=== PATIENT | male | born 1960 | race Caucasian/White ===

== ENCOUNTER 2023-06-04 14:37 | Emergency (ER) | payer OTHER, SELFPAY ==
[2023-06-04 14:39] VITALS: BP 190/120
[2023-06-04 16:03] LABS: % Basophils 0.1 % (0-2); % Eosinophils 3.2 % (0-6); % Immature Granulocytes 0.4 % (0-0.5); % Lymphocytes 22.3 % (20.5-51.1); Absolute Eosinophils 0.3 10^3/uL (0-0.7); Absolute Lymphocytes 1.9 10^3/uL (1.2-3.4); Absolute Monocytes 0.9 10^3/uL (0.1-0.6); Absolute Neutrophils 5.3 10^3/uL (1.4-6.5); Hematocrit 43.8 % (39.0-52.0); Hemoglobin 15.1 g/dL (13.0-18.0); Mean Corp Hgb Conc. 34.5 g/dL (33.0-37.0); Mean Corpuscular Hgb 27.7 pg (27.0-31.0); Mean Corpuscular Volume 80.2 fL (80.0-94.0); Mean Platelet Volume 9.4 fL (7.4-10.4); Nucleated Red Blood Cells % 0 % (-); Platelet Count 237 10^3/uL (130-400); Red Blood Cell Count 5.46 10^6/uL (4.70-6.10); Red Cell Dist. Width 13.5 % (11.5-14.5); White Blood Cell Count 8.4 10^3/uL (4.8-10.8)
[2023-06-04 16:15] LABS: ALT (SGPT) 45 U/L (0-50); AST (SGOT) 48 U/L (17-59); Albumin 4.2 g/dl (3.5-5.0); Alkaline Phosphatase 134 U/L (38-126); Blood Urea Nitrogen 15 mg/dl (9-20); Calcium 9.7 mg/dl (8.4-10.2); Carbon Dioxide 29 mmol/L (22-30); Chloride 101 mmol/L (98-107); Glucose 102 mg/dl (70-99); Potassium 4.4 mmol/L (3.5-5.1); Sodium 137 mmol/L (135-145); Total Bilirubin 2.4 mg/dl (0.2-1.3); Total Protein 7.7 g/dl (6.3-8.2); eGFR > 60.00
[2023-06-04 16:26] LABS: Troponin I < 0.012 ng/ml
[2023-06-04 17:42] VITALS: BP 184/114
--- NOTE | 2023-06-04 18:27 | ED.GENMED ---
History of Present Illness
<Kami Tadeo PA-C - Last Filed: 06/05/23 00:17>
General
Chief Complaint: Throat Problem
Source: patient
Exam Limitations: none
Time Seen by Provider: 06/04/23 17:49
Nursing documentation reviewed up to this point in time: agreed with
Travel History
Have you had any contact with someone who has COVID-19?: No
Do you have any symptoms of coronavirus? Fever > 100 degrees, chills, cough, shortness of breath, sore throat, loss of taste or smell, muscle aches, or headache?: No
History of Present Illness
History of Present Illness:
Patient is a 62-year-old male with no reported chronic medical problems who presents with mild left chest pain which is pleuritic. Patient says it started yesterday. Seem to get worse in intensity today after he was doing some exertional work
lifting some heavy boxes. He says he does this daily for work. 3 days ago he started with some what felt like swollen glands in his throat. He said they were sore and it was slightly painful to swallow. He no longer has that symptom and now has
the mild chest discomfort. It is not significant in intensity, maybe 5 out of 10. It is worse with deep breathing. It is not worse with changing position or physical activity. He is not having any leg swelling, no history of DVT or PE. Patient
has not had any recent long travel. He has not had any surgeries recently. He has not had any fevers or chills, congestion, cough, vomiting. Patient has had elevated blood pressure readings in doctors offices before but never this high. He
thinks he is slightly anxious being here and has not tried anything for pain.
pt says his bps are usually 150s
Past History
<Kami Tadeo PA-C - Last Filed: 06/05/23 00:17>
Past History
ED Past Medical History: None
ED Past Surgical History: Orthopedic
Social History
Tobacco: Non-smoker
Alcohol: None
Drug: None
Personal:
Living: with family
Employment: Employed
Review of Systems
<CAIO Aguilar Last Filed: 06/05/23 00:17>
Review of Systems
Allergies reviewed?: Yes
All Other Systems: Not applicable
Phy Exam
<CAIO Aguilar Last Filed: 06/05/23 00:17>
Physical Exam
Physical Exam:
GENERAL: Alert , in no apparent distress
EYE: pupils equal and reactive
NECK: Supple
No lymphadenopathy appreciated
swallowing araseli
normal phonation
normal rom
ENT: o/p clr, mmm., Slight pharyngeal erythema, no exudate;
CARDIAC: Regular rate and rhythm .no edema
chest wall: nontender
LUNGS: Clear breath sounds bilaterally, no acute respiratory distress, no wheezes/rales/rhonchi
ABDOMEN: Soft, without focal tenderness, no r/g, no cvat, normal bowel sounds
NEUROLOGICAL: Alert and oriented, no focal neuro deficits
SKIN: Warm and dry, skin intact.
MUSCULOSKELETAL: No edema, well perfused. neg joy's sign
PSYCH: Normal and appropriate interaction.
Course
<CAIO Aguilar Last Filed: 06/05/23 00:17>
Orders/Labs/Results
Orders:
Orders
06/04/23 14:39
EKG [Electrocardiogram (*1)] Urgent
Reason for Study: Chest Pain
EKG- Treatment ONCE
06/04/23 15:50
Complete Blood Count/With Diff Urgent
Comprehensive Metabolic Panel Urgent
Troponin I Urgent
06/04/23 18:23
Ketorolac [Toradol] 15 mg IV NOW STA
06/04/23 18:27
Add On- LAB Urgent
Tests Added?: mono
06/04/23 19:05
COVID-19 Antigen Urgent
Source: Nasal Swab
D-Dimer Urgent
Influenza A+B Rapid Molecular Urgent
[facility] Source: Nasal Swab
Specimen Description:
06/04/23 19:08
Monotest Urgent
Comment: ADD ON
06/04/23 19:50
Amlodipine [Norvasc] 5 mg PO NOW STA
06/04/23 19:51
CR Chest - 2 Views Urgent
Comment:
Reason For Exam: chest pain
06/04/23 20:01
Labetalol HCl [Trandate] 10 mg IV NOW STA
Abnormal Lab Results
06/04/23
15:50
Absolute Monos (auto) 0.9 H 10^3/uL
(0.1-0.6)
Monocytes % 11.0 H %
(1.7-9.3)
Glucose 102 H mg/dl
(70-99)
Total Bilirubin 2.4 H mg/dl
(0.2-1.3)
Alkaline Phosphatase 134 H U/L
(38-126)
06/04/23 15:50
06/04/23 15:50
Vital Signs
Initial and Last Documented VS:
Initial Vital Signs
Temp Pulse Resp BP Pulse Ox
98.4 F 93 18 190/120 98
06/04/23 14:39 06/04/23 14:39 06/04/23 14:39 06/04/23 14:39 06/04/23 14:39
Last Documented Vital Signs
Temp Pulse Resp BP Pulse Ox
98.4 F 102 20 186/99 94
06/04/23 14:39 06/04/23 19:59 06/04/23 19:45 06/04/23 20:52 06/04/23 19:45
<Hiren M. Bullard, DO - Last Filed: 06/04/23 20:29>
Orders/Labs/Results
Orders:
Orders
06/04/23 14:39
EKG [Electrocardiogram (*1)] Urgent
Reason for Study: Chest Pain
EKG- Treatment ONCE
06/04/23 15:50
Complete Blood Count/With Diff Urgent
Comprehensive Metabolic Panel Urgent
Troponin I Urgent
06/04/23 18:23
Ketorolac [Toradol] 15 mg IV NOW STA
06/04/23 18:27
Add On- LAB Urgent
Tests Added?: mono
06/04/23 19:05
COVID-19 Antigen Urgent
Source: Nasal Swab
D-Dimer Urgent
Influenza A+B Rapid Molecular Urgent
[facility] Source: Nasal Swab
Specimen Description:
06/04/23 19:08
Monotest Urgent
Comment: ADD ON
06/04/23 19:50
Amlodipine [Norvasc] 5 mg PO NOW STA
06/04/23 19:51
CR Chest - 2 Views Urgent
Comment:
Reason For Exam: chest pain
06/04/23 20:01
Labetalol HCl [Trandate] 10 mg IV NOW STA
Abnormal Lab Results
06/04/23
15:50
Absolute Monos (auto) 0.9 H 10^3/uL
(0.1-0.6)
Monocytes % 11.0 H %
(1.7-9.3)
Glucose 102 H mg/dl
(70-99)
Total Bilirubin 2.4 H mg/dl
(0.2-1.3)
Alkaline Phosphatase 134 H U/L
(38-126)
06/04/23 15:50
06/04/23 15:50
Vital Signs
Initial and Last Documented VS:
Initial Vital Signs
Temp Pulse Resp BP Pulse Ox
98.4 F 93 18 190/120 98
06/04/23 14:39 06/04/23 14:39 06/04/23 14:39 06/04/23 14:39 06/04/23 14:39
Last Documented Vital Signs
Temp Pulse Resp BP Pulse Ox
98.4 F 102 20 186/99 94
06/04/23 14:39 06/04/23 19:59 06/04/23 19:45 06/04/23 20:52 06/04/23 19:45
<Kami Tadeo PA-C - Last Filed: 06/05/23 00:17>
MDM/Problems Addressed
Differential Diagnosis Includes:
ACS, pe, hypertensive urgency,
less likely dissection
MDM/Problems Addressed:
62 y/O m
no chronic medical problems but baseline bps are usually 150s
here with some sore lymph nodes in his tonsillar region neck 3 days ago with slight sore thraot, which resovled and then he had some upper chest discomfort since yesterday
it was midl
but worse today this afternoon whne he was at work
pt does a lot of manual labor
he doesn't feel it is worse with labor or exertion but worse with breathing
no h/o recent travel, DVT or PE, no recent surgery. Patient has never had a blood clot before.
He does feel slightly anxious being here and thinks that is contributing to his blood pressure and his heart rate being elevated. I discussed doing a CT PE study and skipping a D-dimer, he is low risk however he had mild tachycardia. Patient was
very adamant to try to skip the CT scan and given his low risk I felt it was probably appropriate to stratify him with a dimer.
Patient would like to try something for pain first before blood pressure medication. He was given Toradol and his blood pressure came down to 170/80. It did go back up to 180/90. Patient's workup here shows a nonischemic EKG, negative troponin,
negative D-dimer, negative flu and COVID, chest x-ray showing no widened mediastinum or pneumonia. Patient seen by ED attending, will place him in the chest pain hotline, will start amlodipine for his blood pressure. Return precautions given
<Kami Tadeo PA-C - Last Filed: 06/05/23 00:17>
*Critical Care Note
Total Time (30-74mins, 75-104mins- exclusive of procedures): Not Applicable
ED Attending Note
<Kami Tadeo PA-C - Last Filed: 06/05/23 00:17>
-
Portions of this chart may have been created with voice recognition software.� Occasional wrong word or��sound alike� substitutions may have occurred due to the inherent limitations of voice recognition software.
<Hiren Bullard, - Last Filed: 06/04/23 20:29>
ED Attending Note
Patient seen and examined by attending physician: Yes
I performed the substantive portion of visit, reviewed & personally made and approve the management plan that is documented in note by myself or NEW.: Yes
ED Attending Note:
I have seen and evaluated the patient with a [id number] encounter. I have spoken to the advance practicer provider and involved in the medical history, the physical exam, medical decision making.
Evaluation and management service: agree unless noted differently below.
Results interpretation: agree unless noted differently below.
Focused HPI: 62-year-old male presenting with intermittent chest discomfort. Symptoms are not worse with exertion. Patient found to have elevated blood pressure
Physical exam: Sitting comfortably. Heart regular rate and rhythm. Lungs clear
Medical Decision Making: D-dimer negative. Chest x-ray clear. Troponin negative. Doubt ACS given no exertional component. Will treat blood pressure and discussed outpatient follow-up with cardiology and PCP
Discharge Plan
Departure
Patient Disposition: Home (Routine Discharge)
Date of Disposition: 06/04/23
Time of Disposition: 20:30
Patient with high blood pressure during this ER visit?: Yes
Condition: Fair
Covid-19: Not Applicable
Discharge Problem:
Chest pain, Hypertension
Instructions: Chest Pain DCA Follow Up, BLOOD PRESSURE
Prescriptions:
New
amlodipine 5 mg tablet
5 mg PO DAILY Qty: 30 0RF
Referrals:
Tyler Stuart MD [Family Provider] - Follow up in 2-3 days
Activity Restrictions/Additional Instructions:
We are not sure the cause of your symptoms today
but your blood pressure was elevated
start amlodipine 5 mg once a day
keep a record of your blood pressures
see your family doctor next week
we also reached out to the math interventionist for you to get an appointment
return for: severe pain, passing out, severe neck pain, trouble breathing, fever orany concerns.
Interventions
Interventions:
*Risk Screen - Suicide Last Done: 06/04/23 14:39
*General Assessment Last Done: 06/04/23 14:39
*Neglect/Abuse Screening Last Done: 06/04/23 14:39
ED- Fall Risk Assessment Last Done: 06/04/23 17:46
*ED COVID-19 Vaccine History Last Done: 06/04/23 14:39
*Nursing Disposition Last Done: 06/04/23 20:52
ED-EENT Assessment Last Done: 06/04/23 17:46
ED- Pulmonary Assessment Last Done: 06/04/23 17:46
Discharge Date and Time
Discharge Date/Time: 06/04/23 20:53
[2023-06-04] MEDS: TORADOL 15 MG IV (19:03)
[2023-06-04 19:07] VITALS: BP 188/92
[2023-06-04 19:28] LABS: D-Dimer 0.43 ug/mlFEU (0.00-0.50)
[2023-06-04 19:30] VITALS: BP 185/100
[2023-06-04 19:31] LABS: COVID-19 Antigen Negative (Negative)
[2023-06-04 19:38] LABS: Monotest Negative (Negative)
[2023-06-04] MEDS: NORVASC 5 MG PO (19:59)
[2023-06-04 20:52] VITALS: BP 186/99
== END 2023-06-04 20:53 | disposition home or self-care (01) ==
LOC: EMR 14:37
PROVIDERS: Physician Assistant; EMERGENCY PHYSICIAN Student in an Organized Health Care Education/Training Program; FAMILY PHYSICIAN Family Medicine
DX: R07.89 Other chest pain (principal); I10 Essential (primary) hypertension
CPT/HCPCS: 99283; 71046; 80053; 84484; 85025; 85379; 86308; 87502; 87811; 93005